=== PATIENT | female | born 1995 ===

== ENCOUNTER → 2019-05-13 | Outpatient (CLI) | payer OTHER ==
[~2019-05-13] MED LIST: HUMULIN N100 UNIT/2 SUBCUTANEO; HUMULIN R500 UNIT/2 SUBCUTANEO
== END | disposition home or self-care (01) ==
LOC: PRENATAL 09:12
DX: O24.311 Unspecified pre-existing diabetes mellitus in pregnancy, first trimester (principal); O26.841 Uterine size-date discrepancy, first trimester; O99.89 Other specified diseases and conditions complicating pregnancy, childbirth and the puerperium; O36.80X0 Pregnancy with inconclusive fetal viability, not applicable or unspecified

== ENCOUNTER → 2019-06-11 | Outpatient (CLI) | payer OTHER | END | disposition home or self-care (01) | LOC: PRENATAL 08:30 | DX: O35.3XX0 Maternal care for (suspected) damage to fetus from viral disease in mother, not applicable or unspecified (principal); O24.312 Unspecified pre-existing diabetes mellitus in pregnancy, second trimester; O99.89 Other specified diseases and conditions complicating pregnancy, childbirth and the puerperium ==

== ENCOUNTER 2020-09-29 06:12 | Day surgery (SDC) | payer OTHER | END 2020-09-29 17:40 | disposition home or self-care (01) | LOC: CIR.AMB 06:12 | PROVIDERS: ATTEND Obstetrics & Gynecology | DX: Z30.2 Encounter for sterilization (principal); Z20.822 Contact with and (suspected) exposure to COVID-19 ==